=== PATIENT | female | born 1945 ===

== ENCOUNTER 2018-09-27 14:43 | Emergency (ER) | payer MEDICARE, OTHER ==
[2018-09-27 14:43] VITALS: BMI 30.4
[2018-09-27 14:59] VITALS: RESP 20
--- NOTE | 2018-09-27 16:45 | C.PDOC ---
History Of Present Illness 73 year old female, with history of arthritis, comes in to ED complaining of lower leg pain for the past 2 months. Patient reports she saw her PMD and had lab work and US done(results at bedside, US negative for DVT). Denies fever or other complaints. Time Seen by Provider: 09/27/18 16:31 Chief Complaint (Nursing): Lower Extremity Problem/Injury History Per: Patient History/Exam Limitations: no limitations Onset/Duration Of Symptoms: Days Current Symptoms Are (Timing): Still Present Past Medical History Reviewed: Historical Data, Nursing Documentation, Vital Signs Vital Signs: Last Vital Signs Temp 99.6 F 09/27/18 14:57 Pulse 88 09/27/18 14:57 Resp 20 09/27/18 14:57 BP 145/91 H 09/27/18 14:57 Pulse Ox 94 L 09/27/18 14:57 Primary Care Provider: Immanuel Knight - Medical History PMH: Anemia, Anxiety, Arthritis, Asthma, Gastritis, HTN, Migraine, Rheumatoid Arthritis - [facility] Procedures D & C NEC (11/15/13) Family History: States: No Known Family Hx - Social History Hx Tobacco Use: No Hx Alcohol Use: No Hx Substance Use: No - Immunization History Hx Tetanus Toxoid Vaccination: No Hx Influenza Vaccination: No Hx Pneumococcal Vaccination: No Review Of Systems Except As Marked, All Systems Reviewed And Found Negative. Constitutional: Negative for: Fever, Chills Cardiovascular: Negative for: Chest Pain Respiratory: Negative for: Shortness of Breath Gastrointestinal: Negative for: Nausea, Vomiting, Abdominal Pain Genitourinary: Negative for: Dysuria, Hematuria Musculoskeletal: Positive for: Other (lower leg pain). Negative for: Back Pain Neurological: Negative for: Weakness, Numbness Physical Exam - Physical Exam Appears: Non-toxic, No Acute Distress Skin: Warm, Dry Head: Normacephalic Eye(s): bilateral: Normal Inspection Oral Mucosa: Moist Neck: Supple Cardiovascular: Rhythm Regular, No Murmur Respiratory: Normal Breath Sounds, No Rales, No Rhonchi, No Wheezing Gastrointestinal/Abdominal: Soft, No Tenderness Extremity: Bilateral: Atraumatic, Normal Color And Temperature Neurological/Psych: Oriented x3, Normal Speech, Normal Motor, Normal Sensation ED Course And Treatment - Laboratory Results Result Diagrams: 09/27/18 17:25 09/27/18 17:25 O2 Sat by Pulse Oximetry: 94 (RA) Pulse Ox Interpretation: Abnormal Medical Decision Making Medical Decision Making: suspect arthrits recnet us neg for dv.t Plan: --Labs --Toradol 30 mg IVP labs neg. cr normal pain improved. stable for dc. Disposition - Disposition Disposition: HOME/ ROUTINE Disposition Time: 18:00 Condition: STABLE Additional Instructions: follow up with your doctor/clinic .return to er with worsening symptoms or damion rns. Instructions: Rheumatoid Arthritis, Bernal Splints (DC) Forms: [email or web address] (Danish) - Clinical Impression Clinical Impression: Arthritis, Leg pain - Scribe Statement The provider has reviewed the documentation as recorded by the Phillip Antonio Provider Attestation: All medical record entries made by the Phillip were at my direction and personally dictated by me. I have reviewed the chart and agree that the record accurately reflects my personal performance of the history, physical exam, medical decision making, and the department course for this patient. I have also personally directed, reviewed, and agree with the discharge instructions and disposition.
[2018-09-27 17:30] LABS: BASO % 0.6 % (0.0-2.0); EOS # 0.8 K/uL (0.0-0.7); EOS % 9.2 % (0.0-4.0); HEMOGLOBIN 13.1 g/dL (11.0-16.0); LYMPH # 3.4 K/uL (1.0-4.3); LYMPH % 39.7 % (20.0-40.0); MEAN CELL VOLUME 96.8 fL (81.0-99.0); MEAN CORPUSCULAR HEMOGLOBIN 32.6 pg (27.0-31.0); MEAN CORPUSCULAR HGB CONC 33.7 g/dL (33.0-37.0); MEAN PLATELET VOLUME 8.5 fL (7.2-11.7); MONO % 11.4 % (0.0-10.0); NEUT # 3.3 K/uL (1.8-7.0); NEUT % 39.1 % (50.0-75.0); RBC 4.02 Mil/uL (3.80-5.20); RED CELL DISTRIBUTION WIDTH 15.3 % (11.5-14.5); WHITE BLOOD COUNT 8.4 K/uL (4.8-10.8)
[2018-09-27 17:43] LABS: ALB/GLOB RATIO 1.1 (1.0-2.1); ALBUMIN 4.4 g/dL (3.5-5.0); ALT/SGPT 14 U/L (9-52); AST/SGOT 22 U/L (14-36); BLOOD UREA NITROGEN 21 mg/dL (7-17); CALCIUM 9.2 mg/dl (8.6-10.4); GFR NON-AFRICAN AMERICAN 55; INR 1.1; PROTHROMBIN TIME 12.1 SECONDS (9.7-12.2)
[2018-09-27 18:38] VITALS: BP 116/77; PULSE 68; TEMP 97.6
[2018-09-27 20:42] VITALS: O2SAT 94
== END 2018-09-27 18:45 | disposition home or self-care (01) ==
LOC: C.ER 14:43
DX: M79.605 Pain in left leg (principal); M79.604 Pain in right leg; M19.90 Unspecified osteoarthritis, unspecified site; I10 Essential (primary) hypertension
CPT/HCPCS: 80053; 85025; 85610; 85730; 96374; 99284; J1885